=== PATIENT | male | born 1945 ===

== ENCOUNTER 2019-03-13 20:19 | Inpatient (IN) | payer OTHER, MEDICAID ==
[~2019-03-13] VITALS: Ht 182.9 cm; Wt 73.5 kg
--- NOTE | 2019-03-13 22:00 | NUR ---
OPENING NOTES PATIENT IS ALERT AND ORIENTED, BUT SOMETIMES FORGETFUL. PATIENT IS ABLE TO FOLLOW COMMANDS AND PROVIDE INFORMATION. BREATHING IS EVEN AND UNLABORED. WHEEZING AND RHONCHI AUSCULTATED. WILL INFORM MD FOR BREATHING TREATMENT. NO IV ACCESS AT THIS TIME. WILL INSERT. PATIENT DENIES ANY SUICIDAL IDEATION AT THIS TIME. PATIENT STATES "I WISHED I WAS A COUPLE WEEKS AGO, BUT NOT ANYMORE." EDWARDS-SUICIDE SEVERITY RISK ASSESSMENT WAS DONE AND BEHAVIORAL HEALTH REFERRAL AT DISCHARGE. ORIENTED PATIENT TO ROOM AND CALL LIGHT. PATIENT VERBALIZED UNDERSTANDING.
[2019-03-13] MEDS ORDERED: DIVA500T PO (22:50)
[2019-03-13] MEDS ORDERED: ESCI20TA37 PO (22:50)
[2019-03-13] MEDS ORDERED: LEVO50TA8 PO (22:50)
[2019-03-13] MEDS ORDERED: ARIP20TA4 PO (22:50)
[2019-03-13] MEDS ORDERED: LORA0.5T PO (22:50)
[2019-03-13] MEDS ORDERED: DONE5TAB33 PO (22:50)
[2019-03-13] MEDS ORDERED: DOCU250C71 (22:50)
[2019-03-13] MEDS ORDERED: LEVO500T89 PO (22:50)
[2019-03-13] MEDS ORDERED: BUPR100T6 PO (22:50)
[2019-03-13] MEDS ORDERED: VALB80CA PO (22:50)
[2019-03-13] MEDS ORDERED: MEMA5TAB15 PO (22:50)
[2019-03-13] MEDS ORDERED: CARB1TAB10 PO (22:50)
[2019-03-13] MEDS ORDERED: TRAZ-250 PO (22:50)
[2019-03-13] MEDS ORDERED: MIRT15TA7 PO (22:50)
[2019-03-13] MEDS ORDERED: MIRT30TA7 PO (22:52)
--- NOTE | 2019-03-13 23:21 | NUR ---
PAGED PAGED DR. BLANC FOR ORDERS, SPOKE WITH RONI
--- NOTE | 2019-03-13 23:25 | NUR ---
Spoke to Dr. Eisenberg in regards to admitting orders. Orders given and to be inputted by RN.
[2019-03-13] MEDS ORDERED: IPRATROPIUM/ALBUTEROL SULFATE 3 ML AMPUL.NEB (DUONEB) INH PRN (23:45)
[2019-03-13 23:55] VITALS: BP_SYST 128
[2019-03-14 00:18] LABS: BASOPHILS % (AUTO) 0.5 % (0.0-2.0); EOSINOPHILS # (AUTO) 0.2 K/uL (0.0-0.4); EOSINOPHILS % (AUTO) 4.3 % (0.0-4.0); HEMATOCRIT 33.8 % (36-54); HEMOGLOBIN 11.6 g/dL (14.0-18.0); LYMPHOCYTES # (AUTO) 0.8 K/uL (1.0-5.5); LYMPHOCYTES % (AUTO) 17.6 % (20.5-51.5); MEAN CORPUSCULAR HEMOGLOBIN 33 pg (27-31); MEAN CORPUSCULAR HGB CONC 34 % (32-36); MEAN CORPUSCULAR VOLUME 97 fL (79.0-98.0); MONOCYTES # (AUTO) 0.6 K/uL (0.0-1.0); MONOCYTES % (AUTO) 12.2 % (1.7-9.3); NEUTROPHILS % (AUTO) 65.4 % (40.0-70.0); PLATELET COUNT (AUTO) 171 K/uL (130-430); RED BLOOD CELL COUNT(AUTO) 3.49 MIL/uL (4.2-6.2); RED CELL DISTRIBUTION WIDTH 13.8 % (9.0-15.0); WHITE BLOOD COUNT (AUTO) 4.6 K/uL (4.8-10.8)
[2019-03-14 01:07] LABS: ALANINE AMINOTRANSFERASE 8 U/L (12-78); ALBUMIN 2.4 g/dL (3.4-4.8); ANION GAP 6 (5-15); ASPARTATE AMINOTRANSFERASE 20 U/L (10-37); CALCIUM 8.2 mg/dL (8.4-11.0); CHLORIDE 103 mmol/L (98-107); CREATININE 0.76 mg/dL (0.55-1.30); GLUCOSE 78 mg/dL (70-99); POTASSIUM 3.8 mmol/L (3.5-5.1); SODIUM SERUM 137 mmol/L (136-145); TOTAL BILIRUBIN 0.4 mg/dL (0.0-1.0); UREA NITROGEN, BLOOD 21 mg/dL (8-21)
[2019-03-14] MEDS: cefTRIAXone 1 GM in D5W 50 ML IV SCH ×2 (01:22→22:45)
[2019-03-14] MEDS ORDERED: cefTRIAXone 1 GM IVPB PREMIX 50 ML IV ONE (01:30)
--- NOTE | 2019-03-14 01:30 | NUR ---
IV INSERTION/IV ABX IV INSERTED INTO LEFT FOREARM 20 GAUGE WITH GOOD BLOOD RETURN AND FLUSHES EASILY. IV ABX HUNG. EDUCATED THE ACTION AND SIDE EFFECTS OF MEDICATIONS. PATIENT VERBALIZED UNDERSTANDING. NO SIGNS OF ALLERGIC REACTION NOTED. NO OTHER NEEDS AT THIS TIME. CALL LIGHT WITH THE PATIENT. SAFETY PRECAUTIONS IN PLACE.
[2019-03-14 02:04] VITALS: BP_SYST 122
[2019-03-14 02:27] VITALS: BP_SYST 122
[2019-03-14] MEDS: IPRATROPIUM/ALBUTEROL SULFATE 3 ML AMPUL.NEB (DUONEB) INH SCH ×6 (03:13→23:34)
--- NOTE | 2019-03-14 03:57 | NUR ---
SLEEPING NO SIGNS OF DISTRESS NOTED. BREATHING EVEN AND UNLABORED. IV PATENT AND INTACT, NO SIGNS OF INFILTRATION NOTED. NO NEEDS. CALL LIGHT WITH THE PATIENT. SAFETY PRECAUTIONS IN PLACE.
--- NOTE | 2019-03-14 05:10 | NUR ---
CONSULTATION PAGED/CALLED Reason for Consultation: MAJOR DEPRESSION Person Who was Notified: DR. CARDOZA; DR. CARDOZA MADE AWARE DURING ROUNDS Consulting Physician: DR. CARDOZA Ssds Mk 2 Advanced Operator Specialty: PSYCH Ordering Physician: DR. BLANC
--- NOTE | 2019-03-14 05:14 | NUR ---
DR. OREILLY AT BEDSIDE SEEN AND EXAMINE PATIENT. STATES HE WILL LOOK AT PATIENT'S MEDICATIONS.
[2019-03-14] MEDS: LEVOTHYROXINE SODIUM 0.05 MG TABLET PO SCH (06:26)
--- NOTE | 2019-03-14 06:36 | NUR ---
CLOSING NOTES PATIENT RESTING COMFORTABLY IN BED. NO SIGNS OF DISTRESS NOTED. BREATHING EVEN AND UNLABORED. IV PATENT AND INTACT, SALINE LOCKED. PATIENT TOOK MORNING MEDS OKAY. ALL NEEDS MET THROUGHOUT THE SHIFT. CALL LIGHT WITH THE PATIENT. SAFETY PRECAUTIONS IN PLACE. WILL ENDORSE CARE TO DAY SHIFT RN.
[2019-03-14 07:32] LABS: BASOPHILS % (AUTO) 0.5 % (0.0-2.0); EOSINOPHILS # (AUTO) 0.2 K/uL (0.0-0.4); EOSINOPHILS % (AUTO) 5.3 % (0.0-4.0); HEMOGLOBIN 11.7 g/dL (14.0-18.0); LYMPHOCYTES # (AUTO) 0.9 K/uL (1.0-5.5); LYMPHOCYTES % (AUTO) 20.2 % (20.5-51.5); MEAN CORPUSCULAR HEMOGLOBIN 34 pg (27-31); MEAN CORPUSCULAR HGB CONC 34 % (32-36); MEAN CORPUSCULAR VOLUME 98 fL (79.0-98.0); MONOCYTES # (AUTO) 0.5 K/uL (0.0-1.0); MONOCYTES % (AUTO) 11.2 % (1.7-9.3); NEUTROPHILS # (AUTO) 2.8 K/uL (1.8-7.7); NEUTROPHILS % (AUTO) 62.8 % (40.0-70.0); PLATELET COUNT (AUTO) 173 K/uL (130-430); RED BLOOD CELL COUNT(AUTO) 3.48 MIL/uL (4.2-6.2); RED CELL DISTRIBUTION WIDTH 13.7 % (9.0-15.0); WHITE BLOOD COUNT (AUTO) 4.4 K/uL (4.8-10.8)
[2019-03-14 08:00] VITALS: BP_SYST 152
--- NOTE | 2019-03-14 08:00 | NUR ---
PT IS SLEEPING AND EASILY TO BE AROUSED, ALERT AND ORIENTED X4 DENIES ANY PAIN, NO SOB, OCCASSIONAL COUGHING OBSERVED, IN RA, RHONCHI ON ON BILATER UPPER LOBES OF LUNGS, IV SL ON RFA, IV INTACT AND PATENT, TOOK OF PANTS FROM PT. REVIEWED PLAN OF CARE, CALL LIGHT WITHIN REACH
--- NOTE | 2019-03-14 08:30 | NUR ---
UPDATED DR BLANC WITH PT'S STATUS AND LAB RESULTS
[2019-03-14] MEDS: CARBIDOPA/LEVODOPA 25/100 MG TABLET PO SCH ×3 (08:57→21:06)
[2019-03-14] MEDS: ARIPiprazole 5 MG TAB PO SCH (08:58)
[2019-03-14] MEDS: MEMANTINE HCL 5 MG TABLET PO SCH ×2 (08:58→21:06)
[2019-03-14] MEDS: DIVALPROEX SODIUM 500 MG TAB.SR.24H (DEPAKOTE ER) PO SCH ×2 (08:59→21:06)
[2019-03-14] MEDS ORDERED: ARIPiprazole 5 MG TAB PO SCH (09:00)
[2019-03-14] MEDS ORDERED: VALBENAZINE TOSYLATE 80 MG PO SCH (09:00)
--- NOTE | 2019-03-14 09:45 | NUR ---
BTHRM ASSITED PT TO BATHROOM WITH MINIMAL ASSISTANCE, PT IS LITTLE WEAK, AND LITTLE SOB WQITH EXERTION, PT URINATED ONLY, NO BM
[2019-03-14 11:20] VITALS: BP_SYST 136
--- NOTE | 2019-03-14 12:00 | NUR ---
RND PT IS RESTING COMFORTABLY. NO SOB, CALL LIGHT WITHIN REACH
--- NOTE | 2019-03-14 13:45 | NUR ---
ASSISTANCE ASSISTED PT TO BATHROOM, BILATERAL UPPER EXTREMITIES SHAKES OCCASSIONALLY, PT HAD SMALL AMOUNT OF LIGHT BROWN SOFT STOOL, PLACED PT BACK TO BED
--- NOTE | 2019-03-14 14:15 | NUR ---
MD ROSALIO BLANC IS ASSESSING PT AT BEDSIDE
[2019-03-14 15:22] VITALS: BP_SYST 110
--- NOTE | 2019-03-14 16:15 | NUR ---
RNDS, PT IS RESTING COMFORTABLY, NO SOB, CALL LIGHT WITHIN REACH
--- NOTE | 2019-03-14 18:48 | NUR ---
CLOSING NOTES PT JUST FINISH DINNER MEAL, PT IS STABLE. NO SOB, CALL LIGHT WITH REACH
--- NOTE | 2019-03-14 19:30 | NUR ---
Opening notes Received report. Patient resting comfortably in bed. No signs of distress noted. Breathing even and unlabored. IV patent and intact, no signs of infiltration noted. Patient wondering when he will go home. updated patient on plan of care. No other needs. Call light with the patient. Safety precautions in place.
[2019-03-14 20:00] VITALS: BP_SYST 122
[2019-03-14] MEDS ORDERED: buPROPion HCL 100 MG TABLET.SA PO SCH (21:00)
[2019-03-14] MEDS ORDERED: NON-FORMULARY MEDICATION (Escitalopram Oxalate 20 MG) PO SCH (21:00)
[2019-03-14] MEDS ORDERED: traZODone HCL 50 MG TABLET (DESYREL) PO SCH (21:00)
[2019-03-14] MEDS: MIRTAZAPINE 15 MG TABLET PO SCH (21:05)
[2019-03-14] MEDS: CITALOPRAM HYDROBROMIDE 20 MG TABLET PO SCH (21:06)
[2019-03-14] MEDS: DONEPEZIL HCL 5 MG TABLET (ARICEPT) PO SCH (21:06)
--- NOTE | 2019-03-14 21:06 | NUR ---
Medications given. Educated the action and side effects of medications. Patient verbalized understanding and tolerated well. No signs of allergic reaction noted. No other needs. Call light with the patient. Safety precautions in place.
--- NOTE | 2019-03-14 23:16 | NUR ---
Snacks provided to patient per patient request. Patient eats well with no assist. No other needs. Call light with the patient. Safety precautions in place.
--- NOTE | 2019-03-15 01:30 | NUR ---
SLEEPING PATIENT SLEEPING. NO SIGNS OF DISTRESS NOTED. BREATHING EVEN AND UNLABORED. NO NEEDS AT THIS TIME. CALL LIGHT WITH THE PATIENT. SAFETY PRECAUTIONS IN PLACE.
--- NOTE | 2019-03-15 01:30 | NUR ---
RESTING PATIENT RESTING IN BED WATCHING A MOVIE ON PHONE. NO SIGNS OF DISTRESS NOTED. BREATHING EVEN AND UNLABORED. NO NEEDS AT THIS TIME. CALL LIGHT WITH THE PATIENT. SAFETY PRECAUTIONS IN PLACE. Addendum: 03/15/19 at 0236 by Rosario Tse RN WRONG PATIENT.
[2019-03-15 02:13] VITALS: BP_SYST 139
[2019-03-15] MEDS: IPRATROPIUM/ALBUTEROL SULFATE 3 ML AMPUL.NEB (DUONEB) INH SCH ×5 (04:33→23:00)
--- NOTE | 2019-03-15 04:52 | NUR ---
Sleeping Patient assisted to bathroom to void. Patient back in bed and went to sleep. No other needs. Call light with the patient. Safety precautions in place.
[2019-03-15] MEDS: LEVOTHYROXINE SODIUM 0.05 MG TABLET PO SCH (06:36)
--- NOTE | 2019-03-15 06:49 | NUR ---
Closing notes Patient resting comfortably in bed. No signs of distress noted. Breathing even and unlabored. IV patent and intact, no signs of infiltration noted. All needs met throughout the shift. Call light with the patient. Safety precautions in place. Will endorse care to day shift RN.
[2019-03-15 08:00] VITALS: BP_SYST 139
--- NOTE | 2019-03-15 08:00 | NUR ---
AM NOTES In bed, eating breakfast, denies any pain or shortness of breath. ambulate with minimal assistance. Update plan of care. Call light within reach. will monitor.
[2019-03-15] MEDS: CARBIDOPA/LEVODOPA 25/100 MG TABLET PO SCH ×3 (08:38→20:06)
[2019-03-15] MEDS: ARIPiprazole 5 MG TAB PO SCH (08:38)
[2019-03-15] MEDS: MEMANTINE HCL 5 MG TABLET PO SCH ×2 (08:38→20:06)
[2019-03-15] MEDS: DIVALPROEX SODIUM 500 MG TAB.SR.24H (DEPAKOTE ER) PO SCH ×2 (08:39→20:06)
--- NOTE | 2019-03-15 10:00 | NUR ---
Assisted patient to the bathroom and voided. Denies any pain or discomfort. No acute distress noted.
--- NOTE | 2019-03-15 10:21 | NUR ---
DC Planning: Per dr. Eisenberg's order on 03/14, instruction: to call Fabiola Marsh #[phone] at [facility] before discharge the pt. -- JENNIFER Rubi made aware and stated there is no discharge order yet.
[2019-03-15 11:17] VITALS: BP_SYST 139
--- NOTE | 2019-03-15 12:39 | NUR ---
spoke to Dr. Eisenberg and made aware. Addendum: 03/15/19 at 1240 by Adali Ogden RN Made aware of MRSA nares is positive.
--- NOTE | 2019-03-15 15:00 | NUR ---
Resting in bed, Seen by dr. Eisenberg. Denies any pain or discomfort.
[2019-03-15 15:11] VITALS: BP_SYST 125
--- NOTE | 2019-03-15 19:10 | NUR ---
CHANGE OF SHIFT; pt. awake, alert, watching tv when received. no complaints manifested. observed on contact isolation for MRSA nares. call light within reach, on fall risk precautions.
--- NOTE | 2019-03-15 20:00 | NUR ---
NOTES: pt. remains awake, watching tv. VS checked. no complaints manifested. rt. arm/hand shaking due to Parkinson. on seizure precautions. observed contact isolation for MRSA nares. still with generalized weakness. noted occ. bout of non productive cough, on room air. IV lock on rt. arm. on fall precautions.
[2019-03-15] MEDS: MIRTAZAPINE 15 MG TABLET PO SCH (20:06)
[2019-03-15] MEDS: CITALOPRAM HYDROBROMIDE 20 MG TABLET PO SCH (20:06)
[2019-03-15] MEDS: DONEPEZIL HCL 5 MG TABLET (ARICEPT) PO SCH (20:06)
[2019-03-15 20:15] VITALS: BP_SYST 141
--- NOTE | 2019-03-15 20:15 | NUR ---
NOTES: due medications able to swallow without problem. needs attended. for further assist. call light at bedside.
[2019-03-15] MEDS ORDERED: MUPIROCIN 1 GM OIN.PF.APP NS SCH (21:00)
--- NOTE | 2019-03-15 22:00 | NUR ---
NOTES: pt. got out of bed without calling, bed alarm went off. METAL DRESSER assisted pt. to restroom and back to bed. call light within reach.
[2019-03-15] MEDS: cefTRIAXone 1 GM in D5W 50 ML IV SCH (23:24)
--- NOTE | 2019-03-15 23:30 | NUR ---
NOTES: pt. already sleeping ,awakened for IV antibiotic due. still occ. bouts of non productive cough. reminded pt. to call if needs to go restroom. call light at bedside.
--- NOTE | 2019-03-16 01:00 | NUR ---
NOTES: made rounds and pt. sleeping quietly. condition observed.
[2019-03-16] MEDS: IPRATROPIUM/ALBUTEROL SULFATE 3 ML AMPUL.NEB (DUONEB) INH SCH ×6 (03:00→23:00)
--- NOTE | 2019-03-16 03:21 | NUR ---
NOTES: pt. remain in bed, sleeping. safety measures in place.
[2019-03-16 04:43] VITALS: BP_SYST 147
--- NOTE | 2019-03-16 05:31 | NUR ---
NOTES: pt. awakened and assisted by PHOTOCOMPOSING KEYBOARD OPERATOR to the restroom. no complaints noted. went back to bed, alarm on.
--- NOTE | 2019-03-16 06:00 | NUR ---
NOTES: remained sleeping. no distress.
[2019-03-16] MEDS: LEVOTHYROXINE SODIUM 0.05 MG TABLET PO SCH (06:22)
--- NOTE | 2019-03-16 06:50 | NUR ---
CLOSING NOTES; observed contact isolation for MRSA nares. still shakes and tremors due to Parkinson. IV lock intact. on fall risk precautions. bed alarm on. call light at bedside. for further care and assistance. will endorse to incoming shift.
--- NOTE | 2019-03-16 07:35 | NUR ---
Initial notes: Patient sleeping. Stable. I.V. access patent. Call light within reach. Safety measures in placed. Report received at bedside.
[2019-03-16 08:00] VITALS: BP_SYST 147
[2019-03-16] MEDS: MUPIROCIN 2% TOPICAL OINTMENT 22 GM NS SCH ×2 (09:05→20:18)
[2019-03-16] MEDS: DIVALPROEX SODIUM 500 MG TAB.SR.24H (DEPAKOTE ER) PO SCH ×2 (09:05→20:19)
[2019-03-16] MEDS: CARBIDOPA/LEVODOPA 25/100 MG TABLET PO SCH ×3 (09:05→20:18)
[2019-03-16] MEDS: MEMANTINE HCL 5 MG TABLET PO SCH ×2 (09:05→20:18)
[2019-03-16] MEDS: ARIPiprazole 5 MG TAB PO SCH (09:05)
--- NOTE | 2019-03-16 09:17 | NUR ---
rounds: Patient woke up. Alert,awake and oriented. Discussed plan of care. Patient resting on bed. Medication given thru oral and compliant.
[2019-03-16 11:10] VITALS: BP_SYST 155
--- NOTE | 2019-03-16 11:17 | NUR ---
Faina Rivas Dr for clarification of discharge order.
--- NOTE | 2019-03-16 11:44 | NUR ---
Discharge Planning: Pt has order for DC planning to SNF for IV antibiotics. Per RN, Fabiola Marsh states that pt is go to go [facility] for IV antibiotics. VACUUM FURNACE OPERATOR has faxed referral to [facility] ([phone] f.[phone]).
--- NOTE | 2019-03-16 12:14 | NUR ---
rounds: Patient resting on bed. No distress noted.
--- NOTE | 2019-03-16 12:27 | NUR ---
Nutrition Update Tyler Scale 16 noted. Pt admitted for pneumonia. Diet: cardiac BMI: 22 kg/m2 RD to follow per nutrition care standards.
--- NOTE | 2019-03-16 14:39 | NUR ---
rounds: Patient ambulates to the toilet with assist.
[2019-03-16 15:02] VITALS: BP_SYST 129
--- NOTE | 2019-03-16 16:06 | NUR ---
rounds: Patient sitting on the edge of the bed, having snacks.
--- NOTE | 2019-03-16 18:37 | NUR ---
Closing notes: Patient resting on bed. Stable. Needs attended. On contact precaution for MRSA nares. Call light within reach. Safety and seizure measures in placed. Report will be given tonight shift.
--- NOTE | 2019-03-16 19:10 | NUR ---
CHANGE OF SHIFT; pt. awake, alert but forgetful. observed on contact isolation fro MRSA nares. pt. pretty shaky due to Parkinson. instructed to use call light for help, will reassess later. fall risk precautions, bed alarm on.
[2019-03-16 20:00] VITALS: BP_SYST 147
[2019-03-16] MEDS: CITALOPRAM HYDROBROMIDE 20 MG TABLET PO SCH (20:18)
[2019-03-16] MEDS: MIRTAZAPINE 15 MG TABLET PO SCH (20:18)
[2019-03-16] MEDS: DONEPEZIL HCL 5 MG TABLET (ARICEPT) PO SCH (20:18)
--- NOTE | 2019-03-16 22:09 | NUR ---
NOTES: pt. try to get out of bed and walk to the restroom, use urinal at bedside this time and assisted, back to bed, bed alarm on. gets really shaky.
[2019-03-16] MEDS: cefTRIAXone 1 GM in D5W 50 ML IV SCH (23:50)
--- NOTE | 2019-03-17 00:06 | NUR ---
NOTES: pt. still awake, due IV antibiotic started. no complaints. kept warm with blanket.
[2019-03-17] MEDS: IPRATROPIUM/ALBUTEROL SULFATE 3 ML AMPUL.NEB (DUONEB) INH SCH ×4 (03:00→15:49)
[2019-03-17 03:10] VITALS: BP_SYST 156
--- NOTE | 2019-03-17 03:14 | NUR ---
NOTES; pt. got up again without calling, bed alarm went off. assisted to void by CERTIFIED SURGICAL TECH/FIRST ASSISTANT.
--- NOTE | 2019-03-17 04:15 | NUR ---
NOTES: pt. checked and sleeping. continue to monitor. risk for fall.
--- NOTE | 2019-03-17 05:39 | NUR ---
NOTES: pt. still asleep, no acute distress, still noted with occ. bouts of nonproductive cough
--- NOTE | 2019-03-17 06:30 | NUR ---
NOTES: Dr. Marte here, seen pt. MD order to discharge to [facility] on a hold. will inform charge.
--- NOTE | 2019-03-17 06:45 | NUR ---
CLOSING NOTES; pt. tried to use urinal but unable to void. IV lock on left forearm. back to bed, alarm on. call light at bedside but does not use it,pt. forgetful. for further care and assist.
--- NOTE | 2019-03-17 06:56 | NUR ---
Nutrition Update Tyler Scale 16 noted. Pt admitted for Pneumonia Diet: Cardiac Low CHOL Low Fat 2gm Na BMI: 22 kg/m2 RD to follow per nutrition care standards.
[2019-03-17] MEDS: LEVOTHYROXINE SODIUM 0.05 MG TABLET PO SCH (07:35)
--- NOTE | 2019-03-17 07:41 | NUR ---
rn opening note report was endorsed by night nurse .patient is awake and alert sitting up in bed, scheduled medication given as ordered. patient has all safety precautions in place. educated adoption coordinator light but patient is confused. patient has call ligh with him. patient has no sign s of any distress, breathing is equal and non labored. Patient just provided with breakfast by earth auger operator. patient has no other needs at this time. will continue to monitor.
[2019-03-17 07:43] VITALS: BP_SYST 141
[2019-03-17] MEDS: MUPIROCIN 2% TOPICAL OINTMENT 22 GM NS SCH (09:09)
[2019-03-17] MEDS: MEMANTINE HCL 5 MG TABLET PO SCH (09:10)
[2019-03-17] MEDS: ARIPiprazole 5 MG TAB PO SCH (09:10)
[2019-03-17] MEDS: DIVALPROEX SODIUM 500 MG TAB.SR.24H (DEPAKOTE ER) PO SCH (09:10)
[2019-03-17] MEDS: CARBIDOPA/LEVODOPA 25/100 MG TABLET PO SCH ×2 (09:10→15:22)
--- NOTE | 2019-03-17 09:13 | NUR ---
medication Patients scheduled medication given as ordered. patient is awake and alert sitting up in bed no complaints at this time. patient educated front end specialist light for assistance. patient has call light with him. Breathing is equal and non labored. will continue to monitor. no other needs at this time.
--- NOTE | 2019-03-17 10:45 | NUR ---
Discharge Planning: LUCY received call from Rochelle from [facility] ([phone]) pt was accepted to Rm 101[facility], DCP made CM aware.
[2019-03-17 11:13] VITALS: BP_SYST 144
[2019-03-17 11:33] VITALS: BP_SYST 144
--- NOTE | 2019-03-17 11:45 | NUR ---
RN ROUNDING PATIENT IS AWAKE AND ALERT SITTING UP IN BED NO SIGNS OF ANY DISTRESS, BREATHING IS EQUAL AND NON LABORED. PATIENT HAS ALL SAFETY PRECAUTIONS IN PLACE. CALL LIGHT IS WITH HIM EDUCATED TO USE FOR ASSISTANCE. PATIENT HAS NO OTHER NEEDS AT THIS TIME. WILL CONTINUE TO MONITOR.
--- NOTE | 2019-03-17 12:02 | NUR ---
Dietitian Recommendations *Recommend Mechanical Soft Finely Chopped Cardiac diet w/ Ensure Enlive BID. ONS will provide additional 700 kcal and 40 gm protein daily. *Encourage pt to increase PO intake. Please see Nutritional Assessment for details. EDSON, RD
[2019-03-17] MEDS ORDERED: FLU VACC TS2019(65UP)/MF59C/PF 45 MCG/0.5 ML SYRINGE I.M. PRN (13:15)
--- NOTE | 2019-03-17 13:45 | NUR ---
RN ROUNDING PATIENT IS AWAKE AND ALERT, ASSISTED TO BATHROOM AND BACK TO BED. PATIENT SHOWS NO SIGNS OF DISTRESS, BREATHING IS EQUAL AND NON LABORED. PATIENT HAS ALL SAFETY PRECAUTIONS IN PLACE. CALL LIGHT IS WITH HIM, EDUCATED TO USE FOR ASSISTANCE, PATIENT IS CONFUSED REORIENTED BACK TO REALITY. NO OTHER NEEDS AT THIS TIME.
--- NOTE | 2019-03-17 14:14 | NUR ---
SS Note/DCP to [facility]: DOUGLAS faxed clinicals to [facility] for review. Spoke with Emma FISHER p: [phone] f:[phone], who states bed is available for pt. Discharge orders entered for PO antibiotics and d/c to [facility]. SS will follow up. Addendum: 03/17/19 at 1535 by Karyn COLE information received from Emma FISHER @ [phone] from [facility]. [facility] [address] [place] [address] RN to RN: [phone] Phoebe MD: Dr. Garcia ROOM: [facility] Addendum: 03/17/19 at 1552 by Karyn COEL PICK-UP INFO: [facility] transportation arranged, p: [phone]. Pick-Up time: 1944. Transfer Packet in chart.
[2019-03-17] MEDS ORDERED: ALBUTEROL SULFATE 0.083% 2.5 MG/3 ML VIAL.NEB INH PRN (14:15)
--- NOTE | 2019-03-17 15:27 | NUR ---
Medication/flu shot Patients scheduled medication given as ordered. patient is awake and alert, no signs of any distress. patient given flu shot as ordered. patient has call light with him educated to use for assistance. patient has all other safety precautions in place. no other needs at this time. no complaints at this time.
[2019-03-17 15:33] VITALS: BP_SYST 143
[2019-03-17 15:38] VITALS: BP_SYST 143
[2019-03-17] MEDS ORDERED: DOXY100C2 PO (15:44)
[2019-03-17] MEDS ORDERED: IPRA3AMP9 INH (15:46)
--- NOTE | 2019-03-17 17:07 | NUR ---
RN ROUNDING PATIENT ASSISTED, TO BATHROOM AND BACK TO BED. PATIENT IS AWAKE AND ALERT WITH SOME CONFUSION TRIES TO GET OUT OF BED BY HIMSELF. REPORT WAS CALLED AT [facility] GAVE REPORT TO ARN[place]. TRIED TO CALL [facility] FACILITY TO INFORM THAT PATIENT IS GOING TO [facility] BUT DID NOT ANSWER PHONE NUMBER LEFT TO CALL BACK, NO PERSONAL INFORMATION GIVEN. PATIENT HAS ALL SAFETY PRECAUTIONS IN PLACE. NO OTHER NEEDS AT THIS TIME. Addendum: 03/17/19 at 1724 by Marsha Metz RN SPOKE WITH [facility] [place] HEAD OF THE ADMISSIONS DIRECTOR FACILITY TO INFORM OF PLACEMENT TO [place]. SHE VERBALIZED UNDERSTANDING.
--- NOTE | 2019-03-17 18:06 | NUR ---
RN CLOSING NOTE SPOKE WITH PATIENTS FAMILY WHO MAKES DECISION FOR PATIENT, NAME IS DANIA CUEVA, VERBALIZED UNDERSTANDING. [facility]. PATIENT HAS NO OTHER NEEDS AT THIS TIME. CALL LIGHT IS WITH HIM EDUCATED TO USE FOR ASSISTANCE, BUT PATIENT IS CONFUSED. PATIENT HAS ALL OTHER SAFETY PRECAUTIONS IN PLACE.
--- NOTE | 2019-03-17 19:45 | NUR ---
PT WAS TRANSFERRED TO [facility] VIA AMBULANCE WITH ALL HIS BELONGINGS IN STABLE CONDITION. PT'S WRIST ID BAND AND IV ACCESS ALREADY REMOVED BY DAY SHIFT. PT HAS PLAIN WRIST ID BAND WITH HIS NAME AND . PARISH FLOWER, FACILITY HEAD AT [facility] WAS NOTIFIED OF PT'S TRANSFER TO [facility] AND THE ROOM # WAS ALSO GIVEN TO HER.
[2019-03-17] MEDS ORDERED: DOXYCYCLINE HYCLATE 100 MG CAPSULE PO SCH (21:00)
== END 2019-03-17 19:45 | DRG 202 ==
LOC: SMU 21:56
PROVIDERS: ADMIT Family Medicine; ATTEND Family Medicine
DX: J40 Bronchitis, not specified as acute or chronic (principal); R45.851 Suicidal ideations; F25.1 Schizoaffective disorder, depressive type; E03.9 Hypothyroidism, unspecified; F41.9 Anxiety disorder, unspecified; I10 Essential (primary) hypertension; J06.9 Acute upper respiratory infection, unspecified; Z91.5 Personal history of self-harm
CPT/HCPCS: 36415; 71045; 80048; 80053; 80164-TC; 83605; 85025; 87040-TC; 87081; 94640; 94760; J0696; J7060; J7620

== ENCOUNTER 2019-03-18 11:12 | Outpatient (CLI) | payer OTHER ==
[~2019-03-18 11:12] MED LIST: ARIP20TA4 PO; BUPR100T6 PO; CARB1TAB10 PO; DIVA500T PO; DOCU250C71; DONE5TAB33 PO; DOXY100C2 PO; ESCI20TA37 PO; IPRA3AMP9 INH; LEVO500T89 PO; LEVO50TA8 PO; LORA0.5T PO; MEMA5TAB15 PO; MIRT15TA7 PO; MIRT30TA7 PO; TRAZ-250 PO; VALB80CA PO
[2019-03-18 12:47] LABS: CHOLESTEROL 143 mg/dL (<200); HDL CHOLESTEROL 34 mg/dL (>45); LDL CHOLESTEROL 93 mg/dL (<100); TRIGLYCERIDES 76 mg/dL (30-150)
== END 2019-03-18 19:34 | disposition home or self-care (01) ==
LOC: SLB 11:12
PROVIDERS: ATTEND Psychiatry & Neurology Psychiatry
DX: Z00.00 Encounter for general adult medical examination without abnormal findings (principal)
CPT/HCPCS: 36415; 80061; 83036

== ENCOUNTER 2019-03-20 16:21 | Outpatient (CLI) | payer OTHER | END 2019-03-20 20:46 | disposition home or self-care (01) | LOC: SLB 16:21 | PROVIDERS: ATTEND Psychiatry & Neurology Psychiatry | DX: Z00.00 Encounter for general adult medical examination without abnormal findings (principal) | CPT/HCPCS: 36415; 80164-TC ==